=== PATIENT | female | born 1965 | race Caucasian/White ===

== ENCOUNTER 2023-04-29 02:42 | Emergency (ER) | payer MEDICAID ==
[~2023-04-29] VITALS: Ht 165.1 cm; Wt 90.9 kg
[2023-04-29 02:47] VITALS: BP 152/111
[2023-04-29] MEDS ORDERED: TETanus/Pertussis (Acell)/Diphther VAC/PF (Tdap-Adult) 0.5ml syringe IMVAC ONE (04:15)
[2023-04-29] MEDS ORDERED: CefTRIAXone 1000mg IM Kit (w/lidocaine diluent) IM ONE (04:15)
[2023-04-29] MEDS ORDERED: HYDROcodone/acetaminophen 5mg/325mg tablet PO ONE (04:15)
[2023-04-29] MEDS ORDERED: HYDR-3965 PO (04:43)
[2023-04-29] MEDS ORDERED: CLIN-97 PO (04:43)
== END 2023-04-29 05:58 | disposition home or self-care (01) ==
LOC: ER 02:43
DX: S51.812A Laceration without foreign body of left forearm, initial encounter (principal); Z88.0 Allergy status to penicillin; W54.0XXA Bitten by dog, initial encounter; Y93.89 Activity, other specified; Y92.89 Other specified places as the place of occurrence of the external cause; Y99.8 Other external cause status
CPT/HCPCS: 73090; 90471; 90715; 96372; 99284; J0696; A6449

== ENCOUNTER 2023-09-22 23:43 | Emergency (ER) | payer SELFPAY ==
[~2023-09-22] VITALS: Ht 165.1 cm; Wt 102.3 kg
[~2023-09-22 23:43] MED LIST: CLIN-97 PO; HYDR-3965 PO
[2023-09-22 23:47] VITALS: PULSE 117; TEMP 98.5
[2023-09-23] MEDS ORDERED: ACET-1025 PO (00:49)
[2023-09-23 00:55] VITALS: BP 150/78; RESP 15; O2SAT 99
== END 2023-09-23 00:56 | disposition home or self-care (01) ==
LOC: ER 23:44
DX: M25.561 Pain in right knee (principal); G89.29 Other chronic pain; Z88.0 Allergy status to penicillin; Z79.899 Other long term (current) drug therapy
CPT/HCPCS: 99282